=== PATIENT | female | born 1985 | race Caucasian/White ===

== ENCOUNTER 2016-07-20 17:10 | Inpatient (IN) | payer OTHER ==
--- NOTE | ~2016-07-20 | CR7 ---
[facility] A Service of [facility] & [facility] RADIOLOGY TEXT RESULTS PATIENT: FAHAD MONTOYA LOCATION: [address] : [birth year] UNIT #: [id number] AGE: [address]: Ariana Loya MD SEX: F ORDER DR: [id number] [facility] [address] [facility]. [place], [place] [address] [id number] I MR#: [id number] Acc #: [id number] NAME: FAHAD MONTOYA : 1985 SEX: F STUDY DATE/TIME: 07/22/2016 13:04 UNIT: [facility] ROOM: [facility] STUDY DESCRIPTION: CR Abdomen Single AP View Attending Physician: Ariana Loya M.D. Ordering Physician: Ed Torrey Baron M.D. Primary Care Physician: Primary Care Physician No MEDICAL IMAGING REPORT This report is preliminary unless electronic signature is present EXAM Portable abdomen INDICATION Nasogastric tube placement. FINDINGS This portable view of the abdomen shows a nasogastric tube tip is in the body of the stomach. The bowel gas pattern is normal. Dictated by... Jarvis Muniz M.D. THIS IS AN ELECTRONICALLY VERIFIED REPORT Jarvis Muniz M.D. at 07/23/2016 7:27 AM DOMINIQUE/kishan TD: 07/22/2016 21:37 JOB #: [id number] MEDICAL IMAGING REPORT Page 1 of 1 COPY
--- NOTE | ~2016-07-20 | CR72 ---
[facility] A Service of [facility] & [facility] RADIOLOGY TEXT RESULTS PATIENT: FAHAD MONTOYA LOCATION: [address] : [birth year] UNIT #: [id number] AGE: [address]: Ariana Loya MD SEX: F ORDER DR: [id number] [facility] [address] [facility] [address] [place], [place] [address] [id number] I MR#: [id number] Acc #: [id number] NAME: FAHAD MONTOYA : 1985 SEX: F STUDY DATE/TIME: 07/23/2016 21:53 UNIT: [facility] ROOM: [facility] STUDY DESCRIPTION: CR Chest Single View Portable Attending Physician: Ariana Loya M.D. Ordering Physician: Jessica Montez M.D. Primary Care Physician: Primary Care Physician No MEDICAL IMAGING REPORT This report is preliminary unless electronic signature is present EXAM Chest x-ray 07/23/16 (2153 hours) HISTORY 30-year-old female with respiratory failure on ventilator after heroin overdose and cardiac arrest. Follow up cardiopulmonary status. TECHNIQUE AP portable chest x-ray. FINDINGS Since the recent prior study of 07/21/16, the patient has developed volume loss and consolidation of the entire right lower lobe with elevation of the right hemidiaphragm. Central airway obstruction potentially due to mucous plugging should be considered. Left upper lobe infiltrate present on the prior study has largely resolved. Endotracheal tube, right arm PICC and NG tube are in good position. IMPRESSION 1. Volume loss and consolidation of the right lower lobe is new since 07/21/16. Consider central airway obstruction. 2. Improved or resolved left upper lobe infiltrate. 3. Support equipment in good position. STAT * RESULT Dictated by... Major Boswell M.D. THIS IS AN ELECTRONICALLY VERIFIED REPORT Major Boswell M.D. at 07/24/2016 6:02 AM [facility] A Service of [facility] & [facility] RADIOLOGY TEXT RESULTS PATIENT: FAHAD MONTOYA LOCATION: [facility]01 : 85 UNIT #: [id number] AGE: [address]: Ariana Loya MD SEX: F ORDER DR: Carmita TD: 07/23/2016 22:47 JOB #: [id number] MEDICAL IMAGING REPORT Page 1 of 1 COPY
--- NOTE | ~2016-07-20 | EKG ---
PATIENT: FAHAD MONTOYA UNIT #: [id number] Ventricular Rate: 119 BPM Atrial Rate: 119 BPM P-R Interval: 172 ms QRS Duration: 78 ms Q-T Interval: 322 ms QTC Calculation(Bezet): 452 ms P [place]: 84 degrees Calculated R [place]: 72 degrees Calculated T [place]: 79 degrees Diagnosis Line: Sinus tachycardia Diagnosis Line: Otherwise normal ECG Diagnosis Line: When compared with ECG of 30-SEP-2015 15:40, Diagnosis Line: T wave amplitude has increased in Anterolateral Diagnosis Line: leads Diagnosis Line: Confirmed by DO BANUELOS MD ([id number]) on Diagnosis Line: 07/21/2016 1:49:32 PM INTERPRETING MD: DARLENE
--- NOTE | ~2016-07-20 | CR72 ---
[facility] A Service of [facility] & [facility] RADIOLOGY TEXT RESULTS PATIENT: FAHAD MONTOYA [facility] 85 UNIT #: [id number] AGE: [address]: Ariana Loya MD SEX: F ORDER DR: [id number] [facility] [address] [facility] [place], [place] [address] [id number] I MR#: [id number] Acc #: [id number] NAME: FAHAD MONTOYA : 1985 SEX: F STUDY DATE/TIME: 07/20/2016 17:22 UNIT: [facility] ROOM: [facility] STUDY DESCRIPTION: CR Chest Single View Portable Attending Physician: Gagandeep Osullivan M.D. Ordering Physician: Nini Esteban M.D. MEDICAL IMAGING REPORT This report is preliminary unless electronic signature is present EXAM Portable chest 07/20/2016 HISTORY 30-year-old female with heroin overdose and intubation today. Unresponsive. History of asthma. COMPARISON STUDIES Chest 09/30/2015. FINDINGS Frontal chest demonstrates an endotracheal tube with tip projecting 3.5 cm above the antwan. The lungs and pleural spaces are clear. No pneumothorax. Heart size and mediastinum are normal. Pulmonary vasculature is unremarkable. There is some mild left basilar atelectasis. IMPRESSION 1. Endotracheal tube tip projects 3.5 cm above the antwan. 2. Mild left basilar atelectasis. No pneumothorax. Dictated by... Chidi Morillo M.D. THIS IS AN ELECTRONICALLY VERIFIED REPORT Chidi Morillo M.D. at 07/23/2016 7:17 AM ANDREAS/davina TD: 07/21/2016 00:57 JOB #: [id number] MEDICAL IMAGING REPORT [facility] A Service of [facility] & [facility] RADIOLOGY TEXT RESULTS PATIENT: FAHAD MONTOYA LOCATION: [facility] : 85 UNIT #: [id number] AGE: [address]: Ariana Loya MD SEX: F ORDER DR: Page 1 of 1 COPY
--- NOTE | ~2016-07-20 | CO ---
Unit #: [id number] #: [id number] Patient: FAHAD MONTOYA [id number] [address] [place], [place] [address] [id number] I MR#: [id number] NAME: FAHAD MONTOYA ROOM: [facility] Age: 30 Sex: F Admission Date: 07/20/2016 : 1985 Attending Physician: Ariana Loya M.D. Primary Care Physician: Paola Primary Care Physician Consultation Date: 07/22/2016 CONSULTATION REPORT NEPHROLOGY CONSULTATION REASON FOR CONSULT Electrolyte correction for GARRETT management. HISTORY OF PRESENT ILLNESS Ms. Montoya is a 30-year-old female who was admitted with a cardiac arrest from home. She had been found unresponsive by her mother. The patient has a history of drug abuse and apparently had been a drug rehab program until the end of June. Evaluation here in the emergency room in the hospital has quickly determined that she had a severe anoxic brain injury and Dr. Hill's notes have supported clinical brain . However, we are awaiting a nuclear scan to confirm the brain as the patient's family has involved GARRETT. Therefore, I was called because of some electrolyte abnormalities including hypernatremia and some metabolic acidosis. The patient is being supported with fluids and Levophed. She is urinating. She is in no pain or distress. PAST MEDICAL HISTORY Significant for: 1. Asthma. 2. Depression with anxiety. 3. Polysubstance abuse. CURRENT MEDICATIONS 1. She is getting D5W at 100 mL/hour. 2. She is getting free water 350 mL per tube every hour. 3. She is on K and mag protocol. 4. She is also on D5W with 150 mEq of bicarb at 100 mL/hour. 5. Pepcid 20 mg IV twice a day. 6. Lovenox 40 mg subcu daily. 7. Keppra 1000 mg IV q.12. 8. Levophed drip. 9. Zosyn 3.375 g IV q.8. 10. Vancomycin per pharmacy dosing and p.r.n. ALLERGIES She has no known drug allergies. FAMILY HISTORY Noncontributory. SOCIAL HISTORY The patient has a history of smoking and drug abuse per the chart. No Unit #: [id number] #: [id number] Patient: FAHAD MONTOYA history of alcohol abuse. REVIEW OF SYSTEMS A complete twelve point review of systems was attempted but simply unable to be obtained secondary to the patient being unresponsive, on the ventilator. PHYSICAL EXAMINATION VITAL SIGNS: The patient is afebrile, pulse 99, respiratory rate 20, blood pressure 81/53 to 139/97. I's and O's are negative by 3 L as she has made 6 L of urine in the past 24 hours. GENERAL: This is a young 30-year-old female, comfortable on the ventilator, in no acute distress. HEENT: Head is normocephalic. Eyes show pink conjunctivae. The patient is intubated. NECK: No JVD. HEART: Regular rate and rhythm with no murmur or rub appreciated. LUNGS: Coarse breath sounds on the ventilator. Breathing is nonlabored. ABDOMEN: Soft with hypoactive bowel sounds. No tenderness appreciated. EXTREMITIES: The patient has trace hand and lower extremity edema. SKIN: Dry with no rashes. She does have tattoos noted. GENITOURINARY EXAM: Edwards catheter is in place with non-bloody urine. LYMPHATIC EXAM: There is no neck cervical lymphadenopathy. DIAGNOSTIC STUDIES LABORATORY: Most recent ABG showed a pH of 7.32, pCO2 27, pO2 154, bicarb of 14. Last chemistry - sodium down to 168, potassium 2.9, chloride 145, bicarb just 15. Glucose 197, BUN 15, creatinine 1.9. Earlier, sodium was 176, earlier creatinine was 2. Urine drug screen today was negative. Urine culture is growing Gram-negative rods. HIV screen was negative. Lactic level yesterday was 4.4. Initial urine drug screen was positive for benzos and opiates. Overall, her sodium has gone from 139 on admission up to 176 this morning, now down to 168. Creatinine has gone from 1.4 on admission and has been fairly stable with the most recent at 1.9. ASSESSMENT AND PLAN 1. Hypernatremia: Again, I have been asked to correct her hypernatremia as the patient is a GARRETT patient now and we need to get the sodium level down to 160, according to their protocol. Therefore, we will be increasing her D5W to 200 mL/hour and continuing with the free water flushes per the G-tube. We will recheck a chemistry in about an hour and a half and proceed from there. 2. Metabolic acidosis: The patient has been started on a bicarbonate drip and we will also push 4 amps of bicarbonate over the next hour or two. We will recheck blood gas as they also want the ABG within fairly normal limits before the nuclear brain scan. 3. Hypokalemia: This is being corrected per protocol and I will be adding a magnesium to the recheck labs. 4. Anoxic brain injury with brain clinically declared by Unit #: [id number] #: [id number] Patient: FAHAD MONTOYA [facility] with brain scan pending. 5. Pneumonia, on antibiotics. 6. I did discuss these issues with the family who were in agreement to proceed with lab correction for potential organ donation. I would like to thank Dr. Loya for this consult and the opportunity to participate in the evaluation and care of Ms. Montoya. Dictated by... Narinder Ramirez Jr., MLes. AVIVA/dolly TD: 07/23/2016 07:10 JOB #: [id number] CONSULTATION REPORT Page 1 of 1 X Narinder Ramirez MD X CONSULTATION REPORT
--- NOTE | ~2016-07-20 | CO ---
Unit #: [id number] #: [id number] Patient: FAHAD MONTOYA [id number] [facility] [address] [facility]. [place], [place] [address] [id number] I MR#: [id number] NAME: FAHAD MONTOYA ROOM: [facility] Age: 30 Sex: F Admission Date: 07/20/2016 : 1985 Attending Physician: Gagandeep Osullivan M.D. Primary Care Physician: No Primary Care Physician Requesting Physician: Gagandeep Osullivan M.D. Consultation Date: 07/21/2016 CONSULTATION REPORT REASON FOR CONSULTATION Mental status changes, likely hypoxic anoxic encephalopathy, likely overdose. PATIENT IDENTIFICATION This is a 30-year-old right-handed white female who was evaluated in room ICU 1 at [facility]. SOURCE OF INFORMATION Medical records and my discussion with the family. The patient has been seen by flat hammerer, Dr. Humberto Patel. PROBLEM LIST At this time, respiratory failure, anoxic encephalopathy, possible polysubstance abuse, asthma, depression, HISTORY OF PRESENT ILLNESS This is a 30-year-old white female with a past medical history of depression, asthma and hypertension. Also she has known history of polysubstance abuse. As per the family, she was clean for three months, but yesterday her boyfriend was calling her and she was not responding, so her mom went upstairs to check on the patient and she was found in the bathroom unresponsive. Apparently police were called in because apparently there were syringes or other drug paraphernalia in the room. EMS was called in. She was found in cardiac arrest, possible pulseless electrical activity. She was intubated in the field after resuscitation for about 15 minutes. Then she was brought in here. The patient was seen by Dr. Patel last night. She was unresponsive, no eye signs. blown pupils. Heart rate is very tachycardic and I have documentation of systolic blood pressure as low as 63 and diastolic of 24. Right now she is relatively stable, though heart rate is going sometimes up to 140+. Her pH when first collected was 7.11, pCO2 first collected was 51.7. Her random glucose was 227 and it went up to 500+. Creatinine is now up to 1.8. ALT was 509, AST was 315. Urine drug screen was positive for benzodiazepines and opiates. Also, her potassium was 6.4 when she came in. She was never sedated and since admission after even giving her Narcan and other help, she has been unresponsive. She has a Saragosa coma scale of 2T. She has blown pupils. No corneals. No doll's eyes. I even did cold calorics and there were no responses seen. There is no history of seizures or strokes. Head CT shows diffuse cerebral edema and possibly some subarachnoid also. 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 No activity of any kind like seizure or rolling eye movements or twitching. PAST MEDICAL HISTORY As discussed above. PAST SURGICAL HISTORY None. SOCIAL HISTORY Apparently she has a boyfriend. Apparently she had a set of twins, I believe daughters. She has a history of smoking and she does have a history of polysubstance abuse. FAMILY HISTORY No primary neurologic issues. REVIEW OF SYSTEMS Could not be done because of her present coma condition. PHYSICAL EXAMINATION VITALS: Temperature 99.8, pulse 126, respiratory rate 26, blood pressure 131/89. O2 saturations 100%. Weight 145 pounds. NEUROLOGIC EXAMINATION The patient is in a coma. She has a Saragosa coma scale of 2T. No responses of any kind were seen. CRANIAL NERVES: Fully dilated pupil. No corneals. No doll's eyes. No response to cold calorics. I do not see any facial asymmetry. Hearing is obviously questionable. Tongue was midline. I could not visualize the oropharynx or uvula. No head turning was seen. MOTOR: No responses of any kind were seen. SENSORY: No responses of any kind were elicited with any kind of painful stimuli or otherwise. GAIT AND COORDINATION: Could not be evaluated. REFLEXES: I could not get any reflexes. Toes are mute. DIAGNOSTIC STUDIES IMAGING and LABORATORY: Studies reviewed personally and showed to the family. 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 Very poor prognostic picture. I had a very detailed discussion with the family. We were planning to do (1) perfusion scan after I did my examination. I did cold calorics, but GARRETT wanted to wait until tomorrow to do a repeat urine drug screen and based on that to decide. This is a certain type of protocol that they have, so we will have to follow that. She is a DNR. My concern is with young patients with this kind of cerebral edema, she may start herniating and it may be too late to do anything, but unfortunately I have to follow the protocol as I have been instructed. Neurologically there is nothing else that I am adding or doing for her supportive care, airway breathing and circulation support. Nothing says seizure or status. Unit #: [id number] #: [id number] Patient: FAHAD MONTOYA Call me if you have questions, issues or concern. Dictated by... Rosario Hill M.D. GAVINO/francisca TD: 07/22/2016 14:04 JOB #: [id number] CONSULTATION REPORT Page 1 of 1 X Rosario Hill MD X CONSULTATION REPORT
--- NOTE | ~2016-07-20 | NM10 ---
[facility] A Service of [facility] RADIOLOGY TEXT RESULTS PATIENT: FAHAD MONTOYA LOCATION: [place] [address] : [birth year] UNIT #: [id number] AGE: [address]: Ariana Loya MD SEX: F ORDER DR: [id number] [facility] [address] [facility]. [place], [place] [address] [id number] I MR#: [id number] Acc #: [id number] NAME: FAHAD MONTOYA : 1985 SEX: F STUDY DATE/TIME: 07/23/2016 13:02 UNIT: [facility] ROOM: [facility] STUDY DESCRIPTION: NM Brain Image [facility] Flow Attending Physician: Ariana Loya M.D. Ordering Physician: Rosario Hill M.D. MEDICAL IMAGING REPORT This report is preliminary unless electronic signature is present REVISED REPORT SEE ADDENDUM EXAM Brain flow study HISTORY Severe anoxic brain imaging evaluate for brain . FINDINGS Patient was given 18.9 mCi of technetium-99m MDP. DTPA were administered. Anterior and posterior flow images were obtained every 5 seconds out to 4 minutes. Then, 90-second acquisitions from [id number] right and left lateral projections were obtained. The study is abnormal. There is no flow within the brain. There is good flow in the carotid arteries in the neck and there is activity in the scalp and neck. IMPRESSION Study confirms lack of blood flow into the brain. STAT * RESULT Dictated by... Jarvis Muniz M.D. THIS IS AN ELECTRONICALLY VERIFIED REPORT Jarvis Muniz M.D. at 07/23/2016 4:30 PM DOMINIQUE/christi TD: 07/23/2016 14:40 [facility] A Service of [facility] RADIOLOGY TEXT RESULTS PATIENT: FAHAD MONTOYA LOCATION: [address] : [birth year] UNIT #: [id number] AGE: [address]: Ariana Loya MD SEX: F ORDER DR: JOB #: [id number] ADDENDUM The radiopharmaceutical was mistyped in the initial report. The patient received 18.9 mCi of technetium 99m DTPA. Dictated by... Jarvis Muniz M.D. THIS IS AN ELECTRONICALLY VERIFIED REPORT Jarvis Muniz M.D. at 07/26/2016 1:59 PM FEL/gz TD: 07/24/2016 15:43 JOB #: [id number] CC: Niko/mukund Please Delete MEDICAL IMAGING REPORT Page 1 of 1 COPY
--- NOTE | ~2016-07-20 | A ---
[facility] Nutrition Therapy DATE: 07/21/16 Patient: FAHAD MONTOYA Physician: AYAZ Address: [address] Room/Bed: [address], Zip: [place] [address] Admit Date: 07/20/16 Date of : [birth year] Height: 5 7 Weight: 145 66 NUTRITIONAL ASSESSMENT: REASON: Enteral nutrition recommendations Admitting Dx: 30 y/o female admitted with cardiac arrest/heroin OD, found down PMH: Depression, asthma, HTN Anthropometrics: Ht: 67", Wt: 134-145 lbs (avg 66 kg), BMI: 21.9 (normal; based on average weights) Labs: Reviewed Meds: Reviewed Estimated Nutrition Needs: 1227-8791 kcals/day (25-30 kcals/kg) 51-64 g protein/day (0.8-1.0 g/kg) Fluids per MD Assessment: Chart reviewed, events noted. See admitting dx and PMH as stated above. Patient is currently intubated with NGT to LWS. She is unresponsive with no reflexes, CT scan showed severe anoxic brain injury. Per nursing, family will likely withdraw care and plan for terminal extubation. GARRETT is involved so extubation has not been scheduled yet. RD providing EN recommendations in case MD orders to feed the patient. See below. Recommendations: 1. If MD orders enteral nutrition suggest starting Jevity 1.5 @ 20 ml/hr and increase by 10 ml q 4 hours until goal rate of 45 ml/hr is reached, to provide 1620 kcals, 69 g protein and 821 ml water. Free water flushes if desired per MD. 2. Please consult dietitian or page on weekend pager for further nutritional needs (#[phone]). Respectfully, Leeanne Zimmer, TANESHA, LD [employer] and Nutritional Services [facility] Nutrition Therapy DATE: 07/21/16 Patient: FAHAD MONTOYA Physician: AYAZ Address: [address] Room/Bed: [address], Zip: [place] [address] Admit Date: 07/20/16 Date of : [birth year] Height: 5 7 Weight: 145 66 [facility] cc: client file
--- NOTE | ~2016-07-20 | CR72 ---
[facility] A Service of [facility] RADIOLOGY TEXT RESULTS PATIENT: FAHAD MONTOYA LOCATION: [place] [address] : [birth year] UNIT #: [id number] AGE: [address]: Gagandeep Osullivan MD SEX: F ORDER DR: [id number] [facility] [address] [facility]. [place], [place] [address] [id number] I MR#: [id number] Acc #: [id number] NAME: FAHAD MONTOYA : 1985 SEX: F STUDY DATE/TIME: 07/21/2016 3:34 UNIT: [facility] ROOM: [facility] STUDY DESCRIPTION: CR Chest Single View Portable Attending Physician: Gagandeep Osullivan M.D. Ordering Physician: Gagandeep Osullivan M.D. Primary Care Physician: No Primary Care Physician MEDICAL IMAGING REPORT This report is preliminary unless electronic signature is present EXAM AP portable chest 07/21/2016 HISTORY PICC placement. Heroin overdose yesterday. Patient on ventilator. TECHNIQUE AP portable chest x-ray. FINDINGS Newly placed right arm PICC in good position in the mid SVC. New or increasing airspace infiltrate in the central left upper lobe since yesterday. Given the history, evolving aspiration pneumonitis is a consideration. Remaining portions of both lungs are clear. Endotracheal tube remains in good position with tip in the mid thoracic trachea. IMPRESSION 1. PICC in good position. 2. New or increasing airspace infiltrate in the left upper lobe. STAT * RESULT Dictated by... Major Boswell M.D. THIS IS AN ELECTRONICALLY VERIFIED REPORT Major Boswell M.D. at 07/21/2016 6:00 AM ANGELITA/melanie [facility] A Service of [facility] RADIOLOGY TEXT RESULTS PATIENT: FAHAD MONTOYA LOCATION: [facility] : [birth year] UNIT #: [id number] AGE: [address]: Gagandeep Osullivan MD SEX: F ORDER DR: TD: 07/21/2016 04:14 JOB #: [id number] MEDICAL IMAGING REPORT Page 1 of 1 COPY
--- NOTE | ~2016-07-20 | DS ---
Unit #: [id number] #: [id number] Patient: FAHAD MONTOYA [id number] [address] [address] [id number] I MR#: [id number] NAME: FAHAD MONTOYA ROOM: [facility] Age: 31 Sex: F Admission Date: 07/20/2016 : 1985 Discharge Date: 07/23/2016 Attending Physician: Ariana Loya M.D. Primary Care Physician: No Primary Care Physician DISCHARGE SUMMARY SUMMARY HOSPITAL COURSE Ms. Dawkins was a 31-year-old patient who was found unresponsive by her mother. Was brought to ER. Patient was status post pulseless electrical activity cardiac arrest. Patient's admitting diagnosis was acute hypoxic failure, pulseless electrical activity cardiac arrest, anoxic brain injury, acute kidney injury and drug overdose, shock liver and leukocytosis. Patient was very critical. This was told to patient and patient's mother. Patient was made DNR and she was terminally extubated. All throughout patient's stay in the hospital, discussed with family at length. They were aware of patient's critical condition and grave prognosis. Dictated by... Annie Seth/dolly TD: 09/25/2016 12:42 JOB #: [id number] DISCHARGE SUMMARY Page 1 of 1 X Ariana Loya MD X DISCHARGE SUMMARY
--- NOTE | ~2016-07-20 | CT71 ---
[facility] A Service [facility] RADIOLOGY TEXT RESULTS PATIENT: FAHAD MONTOYA LOCATION: [facility]-21 : [birth year] UNIT #: [id number] AGE: [address]: Ariana Loya MD SEX: F ORDER DR: [id number] [facility] [address] [place], [place] [address] [id number] I MR#: [id number] Acc #: [id number] NAME: FAHAD MONTOYA : 1985 SEX: F STUDY DATE/TIME: 07/20/2016 17:53 UNIT: [facility] ROOM: [facility] STUDY DESCRIPTION: CT Head Wo Contrast Attending Physician: Gagandeep Osullivan M.D. Ordering Physician: Nini Esteban M.D. MEDICAL IMAGING REPORT This report is preliminary unless electronic signature is present EXAM CT brain without contrast media HISTORY Found unresponsive and cyanotic at home today. TECHNIQUE Axial imaging of the brain was performed without contrast media. This CT exam was performed with one or more of the following radiation dose reduction techniques: automatic exposure control, adjustment of mA and/or kV according to patient size, and iterative reconstruction. FINDINGS There is diffuse cerebral edema and complete loss of the pressley-white interface. No definite hemorrhages identified. No fluid collections are present. CONCLUSION Diffuse cerebral edema with complete loss of the pressley-white interface. Findings are worrisome for brain given the degree of edema present. Dictated by... Jorge Green M.D. THIS IS AN ELECTRONICALLY VERIFIED REPORT Jorge Green M.D. at 07/24/2016 5:14 PM WILLIAM/davina TD: 07/21/2016 01:16 JOB #: [id number] [facility] A Service [facility] RADIOLOGY TEXT RESULTS PATIENT: FAHAD MONTOYA LOCATION: [facility]-21 : 85 UNIT #: [id number] AGE: [address]: Ariana Loya MD SEX: F ORDER DR: MEDICAL IMAGING REPORT Page 1 of 1 COPY
--- NOTE | ~2016-07-20 | HP ---
Unit #: [id number] #: [id number] Patient: MARIZA MONTOYA [id number] [address] [place], [place] [address] [id number] I MR#: [id number] NAME: MARIZA MONTOYA ROOM: [facility] Age: 30 Sex: F Admission Date: 07/20/2016 : 1985 Attending Physician: Gagandeep Osullivan M.D. Primary Care Physician: No Primary Care Physician HISTORY AND PHYSICAL CHIEF COMPLAINT Unresponsive. HISTORY OF PRESENT ILLNESS Ms. Mariza Montoya is a 30-year-old female, who was found unresponsive by her mother. The story what I know is that patient has a history of drug abuse and was in drug rehab program until end of June and came home. She was still using some sort of drugs. I do not know the details of it. Patient's boyfriend was calling and she was not answering, so patient's mom went upstairs to check on the patient and she was found in the bathroom unresponsive. They do not know how long she was down. EMS was called and patient was found to be in cardiac arrest. She was intubated and resuscitated. At this time, patient is being evaluated in room 1, ICU. Patient is intubated. She is unresponsive. She does not have any gag reflex. She does not have any corneal reflex. CT of the head is showing severe anoxic brain injury. PAST MEDICAL HISTORY 1. Asthma. 2. History of depression. 3. History of anxiety. 4. History of allergic rhinitis. 5. History of polysubstance abuse. SOCIAL HISTORY The patient has history of smoking and drug abuse. No history of alcohol abuse. FAMILY HISTORY Noncontributory. HOME MEDICATIONS 1. Inderal LA 20 mg twice a day. 2. Zyprexa 10 mg nightly. 3. Risperdal 1 mg at bedtime. 4. Lamictal 100 mg daily. REVIEW OF SYSTEMS As per history of presenting illness. PHYSICAL EXAMINATION GENERAL: Patient is being evaluated in ICU, bed 1. VITAL SIGNS: Patient's blood pressure is 131/99, respiratory rate 26, pulse 126, temperature 99.8, oxygen 100%. Unit #: [id number] #: [id number] Patient: MARIZA MONTOYA HEENT: Head is normocephalic. Pupils are dilated bilaterally. CHEST: Decreased air entry. HEART: S1, S2 positive. Regular rhythm. Tachycardia. ABDOMEN: Soft. EXTREMITIES: Negative edema. DIAGNOSTIC STUDIES LABORATORY: Creatinine 1.4, potassium 4, bicarb 17. WBC count 26, hemoglobin 12.5. IMAGING: CT scan of head shows anoxic brain injury. ASSESSMENT The patient is being admitted to ICU with a diagnosis of: 1. Acute hypoxic respiratory failure, status post intubation. 2. Status post pulseless electrical activity cardiac arrest. 3. Anoxic brain injury. 4. Acute kidney injury. 5. Possible drug overdose. 6. Shock liver. 7. Leukocytosis. 8. History of asthma. PLAN Plan is admit to ICU. Dr. Patel has been consulted. Antibiotic empirically is being started. Continue patient on vent until patient's family decides. GARRETT is involved in patient's care. Dr. Hill has been consulted. A urine drug screen will be done in the morning. It was done in ER which was positive for benzodiazepines and opiates. GARRETT can only decide after urine tox screen is negative. The patient's family is very much aware of patient's condition. Patient is DNR at this time. Dictated by Annie Seth TD: 07/21/2016 15:24 JOB #: [id number] HISTORY AND PHYSICAL Page 1 of 1 X Ariana Loya MD X HISTORY AND PHYSICAL
--- NOTE | ~2016-07-20 | CO ---
Unit #: [id number] #: [id number] Patient: FAHAD MONTOYA [id number] [address] [place], [place] [address] [id number] I MR#: [id number] NAME: FAHAD MONTOYA ROOM: [facility] Age: 30 Sex: F Admission Date: 07/20/2016 : 1985 Attending Physician: Gagandeep Osullivan M.D. Primary Care Physician: No Primary Care Physician Consultation Date: 07/20/2016 CONSULTATION REPORT REASON FOR CONSULT ICU management. HISTORY OF PRESENT ILLNESS This is a 30-year-old, female with past medical history significant for depression, asthma, and hypertension who presented to the emergency room with a cardiac arrest. Per mom, patient was in the bathroom and last time she was seen normal was 20 minutes before this incident. Her boyfriend was calling and she was not answering so the mom went upstairs to check on the patient when she found her in the bathroom unresponsive. EMS were called emergently and patient was found to be in a cardiac arrest. She was intubated in the field and resuscitated for 15 minutes. It is unclear to me what kind of rhythm she had, but likely she was in a PEA. Currently, patient is intubated, unresponsive, and no gag, cough, or corneal reflexes. She is not withdrawing to pain and her CT head is showing severe anoxic brain injury. PAST MEDICAL HISTORY 1. Hypertension. 2. Asthma. 3. Depression. PAST SURGICAL HISTORY None. SOCIAL HISTORY Smoking and drug abuse. FAMILY HISTORY Noncontributory. REVIEW OF SYSTEMS Unable to obtain. PHYSICAL EXAMINATION VITAL SIGNS: Blood pressure 81/53, respiratory rate 18, and O2 saturation 98%. HEENT: Atraumatic and normocephalic. EOMI. NECK: Supple. No JVD. No lymphadenopathy. CHEST: Decreased to auscultation bilaterally. HEART: S1 and S2. No murmurs, gallops, or rubs. Unit #: [id number] #: [id number] Patient: FAHAD MONTOYA ABDOMEN: Soft and nontender. Bowel sounds are positive. No hepatosplenomegaly. EXTREMITIES: No edema or cyanosis. SKIN: No rashes. RIP TAILER: Patient is unresponsive. She is not withdrawing to painful stimuli. Pupils are 5 mm and symmetric. No gag, cough, or corneal reflexes. DIAGNOSTIC STUDIES LABORATORY: pH 7.1/CO2 51/pO2 436. Creatinine 1.4, potassium 4, and bicarb 17. No lactic acid level obtained. White blood count 26.1 and hemoglobin 12.5. IMAGING: CT head is consistent with severe anoxic brain injury. ASSESSMENT 1. Acute hypoxic respiratory failure. 2. Status post PEA cardiac arrest. 3. Severe anoxic brain injury. 4. Acute kidney injury. 5. Liver shock. 6. Leukocytosis. 7. Drug overdose. 8. Asthma. PLAN 1. Patient is very critical with a grave prognosis. 2. Will continue patient on the vent pending final decision from family. 3. Will continue patient on IV fluids and she may need pressors. 4. Antibiotics, empirically, for aspiration pneumonia. 5. DVT and GI prophylaxes. 6. I had a lengthy discussion with the parents and sister at bedside regarding prognosis. I suggested (1) patient made DNR and proceed with withdrawing care. However, if (2) want to consider aggressive care, then patient will need early tracheostomy and feeding tube placement and moving to a long-term facility. Critical care time spent on this patient was 35 minutes. Dictated by... Cassi Patel M.D. EA/brittnee TD: 07/21/2016 06:11 JOB #: [id number] CONSULTATION REPORT Page 1 of 1 X CASSI CURRY MD CONSULTATION REPORT
--- NOTE | ~2016-07-20 | EKG ---
PATIENT: FAHAD MONTOYA UNIT #: [id number] Ventricular Rate: 110 BPM Atrial Rate: 110 BPM P-R Interval: 170 ms QRS Duration: 58 ms Q-T Interval: 312 ms QTC Calculation(Bezet): 422 ms P Goshen: 72 degrees Calculated R Gos[place]: 34 degrees Calculated T Goshen: 58 degrees Diagnosis Line: Sinus tachycardia Diagnosis Line: Nonspecific ST abnormality Diagnosis Line: Abnormal ECG Diagnosis Line: When compared with ECG of 20-JUL-2016 17:07, Diagnosis Line: T wave amplitude has decreased in Inferior leads Diagnosis Line: T wave amplitude has decreased in Anterolateral Diagnosis Line: leads Diagnosis Line: Confirmed by DO BANUELOS MD ([id number]) on Diagnosis Line: 07/23/2016 10:57:57 PM INTERPRETING : DARLENE
[~2016-07-20 17:10] MED LIST: ALBUTEROL MININEB NEB; ALBUTEROL17 GM; ALBUTEROL17 GM INH; DULERA 100 MCG/13 GM IH; FLONASE16 GM; MEDROL DOSEPAK4 MG; MEDROL DOSEPAK4 MG PO; MULTI-VITAMIN1 EAC1 PO; PAXIL PO; PREDNISONE PO; PREDNISONE10 MG PO; ROBITUSSIN15 MG/5 ML PO; SEROQUEL XR150 MG PO; SEROQUEL400 MG PO; SINGULAIR PO; SYMBICORT INH; VISTARIL PO; ZITHROMAX PO; ZITHROMAX500 MG PO; ZYRTEC PO
[2016-07-20 17:27] LABS: ARTERIAL BLOOD GAS PCO2 51.7 mmHg (35.0-45.0); ARTERIAL BLOOD GAS pH 7.114 (7.350-7.450)
[2016-07-20 17:28] LABS: ARTERIAL BLD GAS O2 SATURATION 99.5 % (90.0-100.0); ARTERIAL BLOOD GAS ART SITE RIGHT BRACHIAL; ARTERIAL BLOOD GAS CARBOXY HB 1.1 %sat (0.0-9.0); ARTERIAL BLOOD GAS DELIVERY VENT; ARTERIAL BLOOD GAS HCO3 16.6 mmol/L; ARTERIAL BLOOD GAS MET HB 1.3 %sat (0.0-2.0); ARTERIAL BLOOD GAS VENT MODE AC; ARTERIAL DRAW? YES
[2016-07-20 17:36] LABS: URINE SOURCE CLEAN CATCH
[2016-07-20 17:37] LABS: POC - CKMB 3.3 ng/mL (0.0-7.9); POC - TROPONIN <0.05 ng/mL (<=0.05)
[2016-07-20 17:39] LABS: BASOPHIL# 0.1 X10e3 (0-0.3); BASOPHIL% 0.4 % (0-2.5); EOSINOPHIL# 0.4 X10e3 (0-0.7); EOSINOPHIL% 1.5 % (0.0-7.0); HEMATOCRIT 39.3 % (35.0-45.0); HEMOGLOBIN 12.5 gm/dL (12.0-16.0); LYMPHOCYTE# 4.6 X10e3 (1.0-3.5); LYMPHOCYTE% 17.5 % (17.0-45.0); MEAN CELL VOLUME 102.7 FL (83-96); MEAN CORPUSCULAR HEMOGLOBIN 32.6 PG (28-34); MEAN CORPUSCULAR HGB CONC 31.7 g/dL (30-36); MEAN PLATELET VOLUME 8.2 FL (6.5-11.5); MONOCYTE# 0.7 X10e3 (0-1.0); MONOCYTE% 2.7 % (3.0-12.0); NEUTROPHIL# 20.4 X10e3 (1.5-7.1); NEUTROPHIL% 77.9 % (40-75); PLATELET COUNT 499 X10e3 (140-420); RED BLOOD COUNT 3.82 X10e (3.90-5.30); RED CELL DISTRIBUTION WIDTH 13.7 % (11.0-15.5); WHITE BLOOD COUNT 26.1 X10e3 (4.0-10.5)
[2016-07-20 17:40] LABS: DIFF IND YES
[2016-07-20 17:45] LABS: URINE APPEARANCE CLOUDY; URINE BILIRUBIN NEG (NEG); URINE BLOOD 2+ (NEG); URINE COLOR YELLOW; URINE GLUCOSE 100 MG/DL (NEG); URINE KETONE NEG (NEG); URINE LEUKOCYTE ESTERASE TRACE (NEG); URINE NITRATE POS (NEG); URINE PROTEIN 3+ (NEG); URINE SPECIFIC GRAVITY 1.014 (1.003-1.035); URINE UROBILINOGEN 0.2 MG/DL (NEG)
[2016-07-20 17:48] LABS: CULTURE INDICATED? YES; URINE BACTERIA AUWI 4+ (NEGATIVE); URINE SQUAMOUS EPITHELIAL CELL OCC /[HPF]; UWBCS1 AUWI 50-100 (0-5)
[2016-07-20] MEDS ORDERED: INDERAL LA PO (17:53)
[2016-07-20] MEDS ORDERED: ZYPREXA PO (17:53)
[2016-07-20] MEDS ORDERED: PATIENT'S PHARMACY (17:54)
[2016-07-20] MEDS ORDERED: RISPERIDONE PO (17:54)
[2016-07-20] MEDS ORDERED: LAMICTAL PO (17:54)
[2016-07-20 17:55] LABS: AMPHETAMINE NEG (NEG); BARBITURATES NEG (NEG); BENZODIAZEPINES POS (NEG); COCAINE NEG (NEG); MARIJUANA NEG (NEG); OPIATES POS (NEG); TRICYCLIC ANTIDEPRESSANTS NEG (NEG); U METHADONE NEG (NEG)
[2016-07-20 17:59] LABS: ALBUMIN SERUM 3.3 g/dL (3.5-5.0); BILIRUBIN, DIRECT 0.1 mg/dL (0.0-0.2); BILIRUBIN,INDIRECT 0.4 mg/dL (0.0-0.9); BILIRUBIN,TOTAL 0.5 mg/dL (0.2-2.0); BUN/CREATININE RATIO 8.57; CALCIUM SERUM 8.7 mg/dL (8.4-10.2); CREATININE SERUM 1.4 mg/dL (0.6-1.4); GLOM FILT RATE Estimated 50.3 mL/min (>60); PROTEIN TOTAL SERUM 6.9 g/dL (6.0-8.3)
[2016-07-20 18:01] LABS: POTASSIUM 6.4 mmol/L (3.5-5.1)
[2016-07-20 18:03] LABS: PLATELET ESTIMATE INCREASED (NORMAL); RBC NORMAL YES
[2016-07-20 18:04] LABS: U HYALINE CASTS AUWI 0-2 /[LPF]
[2016-07-20 19:04] LABS: POC - CKMB 20.3 ng/mL (0.0-7.9); POC - TROPONIN <0.05 ng/mL (<=0.05)
[2016-07-20 23:04] LABS: ARTERIAL BLD GAS O2 SATURATION 99.6 % (90.0-100.0); ARTERIAL BLOOD GAS ALLEN TEST NORMAL; ARTERIAL BLOOD GAS ART SITE LEFT RADIAL; ARTERIAL BLOOD GAS CARBOXY HB 0.3 %sat (0.0-9.0); ARTERIAL BLOOD GAS DELIVERY VENT; ARTERIAL BLOOD GAS HCO3 13.9 mmol/L; ARTERIAL BLOOD GAS MET HB 1.1 %sat (0.0-2.0); ARTERIAL BLOOD GAS PCO2 27.3 mmHg (35.0-45.0); ARTERIAL BLOOD GAS pH 7.316 (7.350-7.450); ARTERIAL DRAW? YES
[2016-07-20 23:05] LABS: ARTERIAL BLOOD GAS VENT MODE AC
[2016-07-21 04:50] LABS: ARTERIAL BLD GAS O2 SATURATION 99.6 % (90.0-100.0); ARTERIAL BLOOD GAS CARBOXY HB 0.5 %sat (0.0-9.0); ARTERIAL BLOOD GAS MET HB 1.1 %sat (0.0-2.0); ARTERIAL BLOOD GAS PCO2 26.1 mmHg (35.0-45.0); ARTERIAL BLOOD GAS pH 7.307 (7.350-7.450)
[2016-07-21 04:51] LABS: ARTERIAL BLOOD GAS ALLEN TEST NORMAL; ARTERIAL BLOOD GAS ART SITE LEFT RADIAL; ARTERIAL BLOOD GAS DELIVERY VENT; ARTERIAL BLOOD GAS VENT MODE AC; ARTERIAL DRAW? YES
[2016-07-21 05:23] LABS: BASOPHIL% 0.2 % (0-2.5); EOSINOPHIL% 0.1 % (0.0-7.0); HEMOGLOBIN 12.2 gm/dL (12.0-16.0); LYMPHOCYTE# 1.3 X10e3 (1.0-3.5); LYMPHOCYTE% 5.5 % (17.0-45.0); MEAN CELL VOLUME 101.9 FL (83-96); MEAN CORPUSCULAR HGB CONC 31.4 g/dL (30-36); MEAN PLATELET VOLUME 8.2 FL (6.5-11.5); MONOCYTE# 1.1 X10e3 (0-1.0); MONOCYTE% 4.5 % (3.0-12.0); NEUTROPHIL# 21.9 X10e3 (1.5-7.1); NEUTROPHIL% 89.7 % (40-75); PLATELET COUNT 491 X10e3 (140-420); RED BLOOD COUNT 3.83 X10e (3.90-5.30); RED CELL DISTRIBUTION WIDTH 14.2 % (11.0-15.5); WHITE BLOOD COUNT 24.4 X10e3 (4.0-10.5)
[2016-07-21 05:25] LABS: DIFF IND NO
[2016-07-21 06:00] LABS: ALBUMIN SERUM 2.8 g/dL (3.5-5.0); BILIRUBIN,TOTAL 0.7 mg/dL (0.2-2.0); CALCIUM SERUM 8.1 mg/dL (8.4-10.2); CREATININE SERUM 1.8 mg/dL (0.6-1.4); GLOM FILT RATE Estimated 37.1 mL/min (>60); POTASSIUM 4.3 mmol/L (3.5-5.1); PROTEIN TOTAL SERUM 5.6 g/dL (6.0-8.3)
[2016-07-22 04:50] LABS: ARTERIAL BLD GAS O2 SATURATION 98.2 % (90.0-100.0); ARTERIAL BLOOD GAS ALLEN TEST NORMAL; ARTERIAL BLOOD GAS ART SITE LEFT RADIAL; ARTERIAL BLOOD GAS CARBOXY HB 0.2 %sat (0.0-9.0); ARTERIAL BLOOD GAS HCO3 12.3 mmol/L; ARTERIAL BLOOD GAS MET HB 1.1 %sat (0.0-2.0); ARTERIAL BLOOD GAS PCO2 20.7 mmHg (35.0-45.0); ARTERIAL BLOOD GAS VENT MODE AC; ARTERIAL BLOOD GAS pH 7.383 (7.350-7.450); ARTERIAL DRAW? YES
[2016-07-22 06:19] LABS: BASOPHIL# 0.1 X10e3 (0-0.3); BASOPHIL% 0.5 % (0-2.5); EOSINOPHIL# 0.1 X10e3 (0-0.7); EOSINOPHIL% 0.5 % (0.0-7.0); HEMATOCRIT 38.3 % (35.0-45.0); HEMOGLOBIN 12.4 gm/dL (12.0-16.0); LYMPHOCYTE# 4.9 X10e3 (1.0-3.5); LYMPHOCYTE% 31.5 % (17.0-45.0); MEAN CELL VOLUME 101.2 FL (83-96); MEAN CORPUSCULAR HEMOGLOBIN 32.7 PG (28-34); MEAN CORPUSCULAR HGB CONC 32.3 g/dL (30-36); MEAN PLATELET VOLUME 8.6 FL (6.5-11.5); MONOCYTE% 6.3 % (3.0-12.0); NEUTROPHIL# 9.6 X10e3 (1.5-7.1); NEUTROPHIL% 61.2 % (40-75); PLATELET COUNT 375 X10e3 (140-420); RED BLOOD COUNT 3.79 X10e (3.90-5.30); RED CELL DISTRIBUTION WIDTH 14.2 % (11.0-15.5); WHITE BLOOD COUNT 15.7 X10e3 (4.0-10.5)
[2016-07-22 06:22] LABS: DIFF IND NO
[2016-07-22 07:39] LABS: AMPHETAMINE NEG (NEG); BARBITURATES NEG (NEG); BENZODIAZEPINES NEG (NEG); COCAINE NEG (NEG); MARIJUANA NEG (NEG); OPIATES NEG (NEG); TRICYCLIC ANTIDEPRESSANTS NEG (NEG); U METHADONE NEG (NEG)
[2016-07-22 09:30] LABS: BILIRUBIN,TOTAL 0.9 mg/dL (0.2-2.0); CALCIUM SERUM 9.6 mg/dL (8.4-10.2); GLOM FILT RATE Estimated 32.7 mL/min (>60); POTASSIUM 3.2 mmol/L (3.5-5.1); PROTEIN TOTAL SERUM 6.5 g/dL (6.0-8.3)
[2016-07-22 14:55] LABS: BUN/CREATININE RATIO 7.89; CREATININE SERUM 1.9 mg/dL (0.6-1.4); GLOM FILT RATE Estimated 34.8 mL/min (>60)
[2016-07-22 14:58] LABS: POTASSIUM 2.9 mmol/L (3.5-5.1)
[2016-07-22 16:15] LABS: ARTERIAL BLD GAS O2 SATURATION 99.2 % (90.0-100.0); ARTERIAL BLOOD GAS ALLEN TEST NORMAL; ARTERIAL BLOOD GAS ART SITE RIGHT RADIAL; ARTERIAL BLOOD GAS CARBOXY HB 0.1 %sat (0.0-9.0); ARTERIAL BLOOD GAS DELIVERY VENT; ARTERIAL BLOOD GAS HCO3 14.2 mmol/L; ARTERIAL BLOOD GAS MET HB 0.9 %sat (0.0-2.0); ARTERIAL BLOOD GAS PCO2 27.5 mmHg (35.0-45.0); ARTERIAL BLOOD GAS VENT MODE AC; ARTERIAL BLOOD GAS pH 7.321 (7.350-7.450); ARTERIAL DRAW? YES
[2016-07-22 18:46] LABS: BUN/CREATININE RATIO 7.77; CALCIUM SERUM 8.8 mg/dL (8.4-10.2); CREATININE SERUM 1.8 mg/dL (0.6-1.4); GLOM FILT RATE Estimated 37.1 mL/min (>60); MAGNESIUM 1.7 mg/dL (1.6-3.0)
[2016-07-22 18:49] LABS: POTASSIUM 2.9 mmol/L (3.5-5.1)
[2016-07-22 19:19] LABS: ARTERIAL BLD GAS O2 SATURATION 97.3 % (90.0-100.0); ARTERIAL BLOOD GAS CARBOXY HB 0.4 %sat (0.0-9.0); ARTERIAL BLOOD GAS HCO3 19.5 mmol/L; ARTERIAL BLOOD GAS MET HB 1.1 %sat (0.0-2.0); ARTERIAL BLOOD GAS pH 7.451 (7.350-7.450); ARTERIAL DRAW? YES
[2016-07-22 19:20] LABS: ARTERIAL BLOOD GAS ALLEN TEST NORMAL; ARTERIAL BLOOD GAS ART SITE RIGHT RADIAL; ARTERIAL BLOOD GAS VENT MODE AC
[2016-07-22 21:35] LABS: BUN/CREATININE RATIO 7.05; CALCIUM SERUM 8.8 mg/dL (8.4-10.2); CREATININE SERUM 1.7 mg/dL (0.6-1.4); GLOM FILT RATE Estimated 39.8 mL/min (>60); POTASSIUM 3.1 mmol/L (3.5-5.1)
[2016-07-23 01:23] LABS: BASOPHIL# 0.1 X10e3 (0-0.3); BASOPHIL% 0.4 % (0-2.5); EOSINOPHIL# 0.4 X10e3 (0-0.7); EOSINOPHIL% 3.8 % (0.0-7.0); HEMATOCRIT 29.2 % (35.0-45.0); LYMPHOCYTE% 25.7 % (17.0-45.0); MEAN CELL VOLUME 99.1 FL (83-96); MEAN CORPUSCULAR HEMOGLOBIN 32.7 PG (28-34); MEAN PLATELET VOLUME 8.7 FL (6.5-11.5); MONOCYTE# 0.5 X10e3 (0-1.0); MONOCYTE% 3.8 % (3.0-12.0); NEUTROPHIL# 7.8 X10e3 (1.5-7.1); NEUTROPHIL% 66.3 % (40-75); PLATELET COUNT 238 X10e3 (140-420); RED BLOOD COUNT 2.95 X10e (3.90-5.30); WHITE BLOOD COUNT 11.8 X10e3 (4.0-10.5)
[2016-07-23 01:37] LABS: HEMOGLOBIN 9.6 gm/dL (12.0-16.0)
[2016-07-23 01:38] LABS: DIFF IND NO
[2016-07-23 01:40] LABS: ALBUMIN SERUM 2.2 g/dL (3.5-5.0); BILIRUBIN,TOTAL 0.7 mg/dL (0.2-2.0); BUN/CREATININE RATIO 6.25; CALCIUM SERUM 8.6 mg/dL (8.4-10.2); CREATININE SERUM 1.6 mg/dL (0.6-1.4); GLOM FILT RATE Estimated 42.8 mL/min (>60); MAGNESIUM 2.6 mg/dL (1.6-3.0); PROTEIN TOTAL SERUM 4.9 g/dL (6.0-8.3)
[2016-07-23 01:49] LABS: POTASSIUM 2.6 mmol/L (3.5-5.1)
[2016-07-23 02:05] LABS: ARTERIAL BLOOD GAS HCO3 20.8 mmol/L; ARTERIAL BLOOD GAS PCO2 27.9 mmHg (35.0-45.0)
[2016-07-23 02:06] LABS: ARTERIAL BLD GAS O2 SATURATION 97.9 % (90.0-100.0); ARTERIAL BLOOD GAS CARBOXY HB 0.5 %sat (0.0-9.0); ARTERIAL DRAW? YES
[2016-07-23 02:08] LABS: ARTERIAL BLOOD GAS ALLEN TEST NORMAL; ARTERIAL BLOOD GAS ART SITE RIGHT RADIAL; ARTERIAL BLOOD GAS VENT MODE AC
[2016-07-23 11:01] LABS: CREATININE SERUM 1.2 mg/dL (0.6-1.4); GLOM FILT RATE Estimated 60.6 mL/min (>60)
[2016-07-23 11:07] LABS: CALCIUM SERUM 6.2 mg/dL (8.4-10.2)
[2016-07-23 11:24] LABS: POTASSIUM 2.5 mmol/L (3.5-5.1)
[2016-07-23 12:34] LABS: BUN/CREATININE RATIO 5.38; CALCIUM SERUM 7.3 mg/dL (8.4-10.2); CREATININE SERUM 1.3 mg/dL (0.6-1.4)
[2016-07-23 17:30] LABS: ARTERIAL BLOOD GAS HCO3 22.7 mmol/L; ARTERIAL BLOOD GAS PCO2 57.6 mmHg (35.0-45.0); ARTERIAL BLOOD GAS PO2 80.8 mmHg (80.0-100); ARTERIAL BLOOD GAS pH 7.204 (7.350-7.450)
[2016-07-23 17:31] LABS: ARTERIAL BLD GAS O2 SATURATION 95.9 % (90.0-100.0); ARTERIAL BLOOD GAS ART SITE ARTERIAL LINE; ARTERIAL BLOOD GAS CARBOXY HB 0.4 %sat (0.0-9.0); ARTERIAL BLOOD GAS DELIVERY VENT; ARTERIAL BLOOD GAS VENT MODE A/C; ARTERIAL DRAW? YES
[2016-07-23 18:19] LABS: BASOPHIL# 0.1 X10e3 (0-0.3); BASOPHIL% 0.9 % (0-2.5); EOSINOPHIL# 0.3 X10e3 (0-0.7); EOSINOPHIL% 2.5 % (0.0-7.0); HEMATOCRIT 34.2 % (35.0-45.0); LYMPHOCYTE# 1.6 X10e3 (1.0-3.5); MEAN CORPUSCULAR HEMOGLOBIN 31.7 PG (28-34); MEAN PLATELET VOLUME 8.8 FL (6.5-11.5); MONOCYTE# 0.9 X10e3 (0-1.0); MONOCYTE% 6.9 % (3.0-12.0); NEUTROPHIL# 10.2 X10e3 (1.5-7.1); NEUTROPHIL% 77.7 % (40-75); PLATELET COUNT 255 X10e3 (140-420); RED BLOOD COUNT 3.46 X10e (3.90-5.30); RED CELL DISTRIBUTION WIDTH 14.1 % (11.0-15.5); WHITE BLOOD COUNT 13.1 X10e3 (4.0-10.5)
[2016-07-23 18:20] LABS: DIFF IND NO
[2016-07-23 18:27] LABS: INR 1.1; PARTIAL THROMBOPLASTIN TIME 27.3 SECONDS (23.5-31.3); PROTHROMBIN TIME (PATIENT) 11.8 SECONDS (9.6-11.5)
[2016-07-23 18:53] LABS: ALBUMIN SERUM 2.3 g/dL (3.5-5.0); BILIRUBIN, DIRECT 0.1 mg/dL (0.0-0.2); BUN/CREATININE RATIO 4.61; CALCIUM SERUM 7.2 mg/dL (8.4-10.2); CREATININE SERUM 1.3 mg/dL (0.6-1.4); MAGNESIUM 1.4 mg/dL (1.6-3.0); PHOSPHOROUS 4.5 mg/dL (2.5-4.6); PROTEIN TOTAL SERUM 5.3 g/dL (6.0-8.3)
[2016-07-23 18:57] LABS: POTASSIUM 5.8 mmol/L (3.5-5.1)
[2016-07-23 19:53] LABS: ARTERIAL BLD GAS O2 SATURATION 97.8 % (90.0-100.0); ARTERIAL BLOOD GAS ART SITE ARTERIAL LINE; ARTERIAL BLOOD GAS CARBOXY HB 0.4 %sat (0.0-9.0); ARTERIAL BLOOD GAS DELIVERY VENT; ARTERIAL BLOOD GAS HCO3 19.1 mmol/L; ARTERIAL BLOOD GAS MET HB 1.1 %sat (0.0-2.0); ARTERIAL BLOOD GAS PCO2 46.2 mmHg (35.0-45.0); ARTERIAL BLOOD GAS PO2 94.7 mmHg (80.0-100); ARTERIAL BLOOD GAS VENT MODE AC; ARTERIAL BLOOD GAS pH 7.226 (7.350-7.450); ARTERIAL DRAW? YES
[2016-07-23 20:30] LABS: URINE APPEARANCE CLEAR; URINE BILIRUBIN NEG (NEG); URINE BLOOD NEG (NEG); URINE COLOR YELLOW; URINE GLUCOSE 500 MG/DL (NEG); URINE KETONE NEG (NEG); URINE LEUKOCYTE ESTERASE TRACE (NEG); URINE NITRATE NEG (NEG); URINE PROTEIN NEG (NEG); URINE SPECIFIC GRAVITY 1.007 (1.003-1.035); URINE UROBILINOGEN 0.2 MG/DL (NEG)
[2016-07-23 20:32] LABS: URBCS1 AUWI 0-2 /[HPF] (0-2); URINE BACTERIA AUWI NEG (NEGATIVE); URINE SQUAMOUS EPITHELIAL CELL NONE SEEN /[HPF]
[2016-07-23 20:39] LABS: CULTURE INDICATED? NO
[2016-07-23 22:36] LABS: BASOPHIL# 0.1 X10e3 (0-0.3); BASOPHIL% 0.7 % (0-2.5); EOSINOPHIL# 0.1 X10e3 (0-0.7); EOSINOPHIL% 0.7 % (0.0-7.0); HEMATOCRIT 30.8 % (35.0-45.0); HEMOGLOBIN 10.2 gm/dL (12.0-16.0); LYMPHOCYTE# 0.5 X10e3 (1.0-3.5); LYMPHOCYTE% 6.6 % (17.0-45.0); MEAN CELL VOLUME 98.6 FL (83-96); MEAN CORPUSCULAR HEMOGLOBIN 32.8 PG (28-34); MEAN CORPUSCULAR HGB CONC 33.3 g/dL (30-36); MONOCYTE# 0.3 X10e3 (0-1.0); NEUTROPHIL# 7.1 X10e3 (1.5-7.1); PLATELET COUNT 222 X10e3 (140-420); RED BLOOD COUNT 3.12 X10e (3.90-5.30); WHITE BLOOD COUNT 8.1 X10e3 (4.0-10.5)
[2016-07-23 22:37] LABS: DIFF IND NO
[2016-07-23 22:47] LABS: INR 1.1; PARTIAL THROMBOPLASTIN TIME 29.9 SECONDS (23.5-31.3); PROTHROMBIN TIME (PATIENT) 12.1 SECONDS (9.6-11.5)
[2016-07-23 23:10] LABS: ALBUMIN SERUM 2.1 g/dL (3.5-5.0); BILIRUBIN, DIRECT 0.2 mg/dL (0.0-0.2); BILIRUBIN,TOTAL 0.9 mg/dL (0.2-2.0); CALCIUM SERUM 7.1 mg/dL (8.4-10.2); CREATININE SERUM 1.4 mg/dL (0.6-1.4); GLOM FILT RATE Estimated 50.3 mL/min (>60); MAGNESIUM 1.5 mg/dL (1.6-3.0); PHOSPHOROUS 2.8 mg/dL (2.5-4.6); POTASSIUM 4.7 mmol/L (3.5-5.1); PROTEIN TOTAL SERUM 4.5 g/dL (6.0-8.3)
[2016-07-23 23:28] LABS: %MB 5.4 % (0.0-4.0); MB 4.9 ng/ml
[2016-07-26 07:14] LABS: HA AB IGM (HEPPAN) Nonreactive (()); HB CORE AB IGM (HEPPAN) Nonreactive (Nonreactive); HB S AG (HEPPAN) Nonreactive (Nonreactive); HEP C AB (HEPPAN) Reactive (Nonreactive)
== END 2016-07-23 14:25 | disposition expired | DRG 917 ==
LOC: CED 17:10 → CEDOF 19:45 → CICCU2 19:45 → CEDOF 20:02 → CED 20:02 → CICCU2 20:02 → CEDOF 21:08 → CICCU2 22:09
PROVIDERS: Emergency Medicine; Internal Medicine; Internal Medicine Nephrology; Internal Medicine Pulmonary Disease; Nurse Practitioner; Physician Assistant Medical
PROC: 5A1955Z Respiratory Ventilation, Greater than 96 Consecutive Hours (ICD-10-PCS; 2016-07-20)
PROC: 02HV33Z Insertion of Infusion Device into Superior Vena Cava, Percutaneous Approach (ICD-10-PCS; principal; 2016-07-21)
PROC: 0D9770Z Drainage of Stomach, Pylorus with Drainage Device, Via Natural or Artificial Opening (ICD-10-PCS; 2016-07-22)
PROC: 03HB33Z Insertion of Infusion Device into Right Radial Artery, Percutaneous Approach (ICD-10-PCS; 2016-07-23)
DX: T40.1X1A Poisoning by heroin, accidental (unintentional), initial encounter (principal); J96.01 Acute respiratory failure with hypoxia; I46.9 Cardiac arrest, cause unspecified; G93.6 Cerebral edema; K72.00 Acute and subacute hepatic failure without coma; G93.1 Anoxic brain damage, not elsewhere classified; J69.0 Pneumonitis due to inhalation of food and vomit; N17.9 Acute kidney failure, unspecified; E87.0 Hyperosmolality and hypernatremia; E87.2 Acidosis; R57.9 Shock, unspecified; F11.10 Opioid abuse, uncomplicated; F17.210 Nicotine dependence, cigarettes, uncomplicated; F41.8 Other specified anxiety disorders; J45.909 Unspecified asthma, uncomplicated; Z66 Do not resuscitate; I10 Essential (primary) hypertension; E87.6 Hypokalemia
CPT/HCPCS: 36415; 36600; 51702; 70450; 71010; 74000; 78606; 80048; 80053; 80074; 80076; 80307; 81003; 82150; 82248; 82330; 82550; 82553; 82803; 82947; 82977; 83605; 83690; 83735; 83880; 84100; 84132; 84484; 85025; 85610; 85730; 86850; 86900; 86901; 87086; 87088; 87186; 87522; 87806; 88307; 88313; 93005; 94002; 94003; 94760; 94761; 96361; 96374; 96375; 99285; A9539; A9548; G0480; J1650; J1953; J2370; J2543; J2930; J3370; J3475; J3490; J7060